=== PATIENT | female | born 2000 | race Caucasian/White ===

== ENCOUNTER → 2022-03-01 | Outpatient (CLI) | payer OTHER ==
[2022-03-01 14:25] LABS: HEMATOCRIT 40.9 % (36.0-47.0); HEMOGLOBIN 14.2 g/dl (12.0-15.5); MEAN CORPUSCULAR HEMOGLOBIN 29.8 pg (27.0-33.0); MEAN CORPUSCULAR HGB CONC 34.7 g/dl (32.0-36.5); MEAN CORPUSCULAR VOLUME 85.9 fl (80.0-96.0); PLATELET COUNT, AUTOMATED 244 10^3/uL (150-450); RED BLOOD COUNT 4.76 10^6/uL (4.00-5.40); WHITE BLOOD COUNT 8.5 10^3/uL (4.0-10.0)
[2022-03-01 15:44] LABS: GC DNA AMPLIFICATION NEGATIVE (NEGATIVE)
[2022-03-01 16:00] LABS: HEPATITIS C VIRUS ABY INDEX < 0.0 INDEX (<0.8); HIV 1&2 SCREEN CENTAUR NEGATIVE (NEGATIVE)
== END ==
LOC: M PLALAB 10:24
PROVIDERS: ATTEND Obstetrics & Gynecology
DX: Z34.81 Encounter for supervision of other normal pregnancy, first trimester (principal); Z3A.00 Weeks of gestation of pregnancy not specified

== ENCOUNTER → 2022-04-24 | Outpatient (CLI) | payer SELFPAY | LOC: M WHC 07:10 | PROVIDERS: ATTEND Advanced Practice Midwife | DX: Z34.82 Encounter for supervision of other normal pregnancy, second trimester (principal); Z3A.20 20 weeks gestation of pregnancy ==

== ENCOUNTER → 2022-06-02 | Outpatient (CLI) | payer OTHER ==
[2022-06-02 17:30] LABS: HEMATOCRIT 38.3 % (36.0-47.0); HEMOGLOBIN 12.7 g/dl (12.0-15.5); MEAN CORPUSCULAR HEMOGLOBIN 28.7 pg (27.0-33.0); MEAN CORPUSCULAR HGB CONC 33.2 g/dl (32.0-36.5); MEAN CORPUSCULAR VOLUME 86.7 fl (80.0-96.0); PLATELET COUNT, AUTOMATED 296 10^3/uL (150-450); RED BLOOD COUNT 4.42 10^6/uL (4.00-5.40); WHITE BLOOD COUNT 11.7 10^3/uL (4.0-10.0)
== END ==
LOC: M PLALAB 14:29
PROVIDERS: ATTEND Obstetrics & Gynecology
DX: Z34.02 Encounter for supervision of normal first pregnancy, second trimester (principal); Z3A.00 Weeks of gestation of pregnancy not specified

== ENCOUNTER → 2022-07-03 | Outpatient (CLI) | payer OTHER, SELFPAY | LOC: M WHC 13:32 | PROVIDERS: ATTEND Obstetrics & Gynecology | DX: Z34.02 Encounter for supervision of normal first pregnancy, second trimester (principal); Z3A.29 29 weeks gestation of pregnancy ==

== ENCOUNTER → 2022-07-26 | Outpatient (CLI) | payer OTHER | LOC: M LAB 07:05 | PROVIDERS: ATTEND Obstetrics & Gynecology | DX: R73.09 Other abnormal glucose (principal) ==

== ENCOUNTER → 2022-08-11 | Outpatient (REF) | payer OTHER | LOC: M SFHCWAGY 16:47 | PROVIDERS: ATTEND Obstetrics & Gynecology | DX: Z34.03 Encounter for supervision of normal first pregnancy, third trimester (principal) | CPT/HCPCS: 87081; 87186; G0463 ==

== ENCOUNTER 2022-09-10 02:01 | Inpatient (IN) | payer OTHER ==
[2022-09-10] VITALS (30 sets, daily range): BP systolic 93–146; BP diastolic 50–113
[~2022-09-10] VITALS: Ht 152.4 cm; Wt 84.1 kg
[2022-09-10] MEDS ORDERED: PENICILLIN G POTASSIUM 5 MU IV 5 MU in D5W MINI-BAG PLUS 100 ML IV STA (02:48)
[2022-09-10] MEDS ORDERED: LIDOCAINE 1% MDV 20ML VIAL INFIL PRN (02:50)
[2022-09-10] MEDS ORDERED: OXYTOCIN DRIP 30 UNITS in IV 1 EA IV PRN (02:50)
[2022-09-10] MEDS ORDERED: UNRESOLVED CLARIFICATION ENTRY XX STA (02:53)
[2022-09-10 03:32] LABS: HEMATOCRIT 33.6 % (36.0-47.0); HEMOGLOBIN 10.9 g/dl (12.0-15.5); MEAN CORPUSCULAR HEMOGLOBIN 25.3 pg (27.0-33.0); MEAN CORPUSCULAR HGB CONC 32.4 g/dl (32.0-36.5); MEAN CORPUSCULAR VOLUME 78.1 fl (80.0-96.0); PLATELET COUNT, AUTOMATED 247 10^3/uL (150-450); WHITE BLOOD COUNT 11.2 10^3/uL (4.0-10.0)
[2022-09-10] MEDS ORDERED: ePHEDrine SULFATE 25 MG/5 ML(5MG/ML) SYRINGE IVP PRN (05:05)
[2022-09-10] MEDS ORDERED: NALOXONE INJ 0.4MG/1ML VIAL IV PRN (05:05)
[2022-09-10] MEDS ORDERED: EPIDURAL/PCA KEYS XX PRN (05:05)
[2022-09-10] MEDS ORDERED: LR 500 ML IV PRN (05:05)
[2022-09-10] MEDS ORDERED: diphenhydrAMINE 50MG/ML VIAL IV PRN (05:05)
[2022-09-10] MEDS: FENTANYL/ROPIVACAINE/NACL BAG 100 ML EPIDURAL SCH ×2 (05:50→17:27)
[2022-09-10] MEDS ORDERED: OXYTOCIN DRIP 30 UNITS in IV 1 EA IV SCH (07:15)
[2022-09-10] MEDS: PEN G POT 3,000,000 UNIT/50 ML 3,000,000 UNIT in IV 1 EA IV SCH ×4 (07:46→21:03)
[2022-09-10] MEDS ORDERED: PRENTAB9 PO (08:25)
[2022-09-10] MEDS ORDERED: HOME MED LIST COMPLETE! XX SCH (08:25)
[2022-09-10] MEDS ORDERED: ONDA-83 PO (08:25)
[2022-09-10] MEDS: LR 1,000 ML IV SCH ×2 (08:27→17:27)
[2022-09-10] MEDS: ONDANSETRON 4MG 2ML VIAL IV PRN ×2 (14:50→21:03)
[2022-09-10] MEDS ORDERED: ACETAMINOPHEN 500 MG TAB PO ONE (20:00)
[2022-09-10] MEDS ORDERED: CALCIUM CARBONATE 500 MG CHEW U/D PO PRN (21:00)
[2022-09-10 21:59] LABS: CORD GAS ABE A -12.1; CORD GAS HCO3 A 17.9 MEQ/L; CORD GAS O2 SAT A 21.9 %; CORD GAS PCO2 A 57.4 mmHg; CORD GAS PH A 7.111 UNITS; CORD GAS PO2 A 15.1 mmHg; CORD GAS SBC A 13.7 MEQ/L; CORD GAS TCO2 A 19.6 MEQ/L
[2022-09-10 22:00] LABS: CORD GAS ABE V -11.9; CORD GAS HCO3 V 14.8 MEQ/L; CORD GAS O2 SAT V 43.6 %; CORD GAS PCO2 V 36.2 mmHg; CORD GAS PH V 7.229 UNITS; CORD GAS PO2 V 20.8 mmHg; CORD GAS SBC V 14.3 MEQ/L; CORD GAS TCO2 V 15.9 MEQ/L
[2022-09-10] MEDS ORDERED: RHOGAM 300MCG (1500IU) INJ IM SCH (22:15)
[2022-09-10] MEDS ORDERED: ONDANSETRON 4MG 2ML VIAL IV PRN (22:15)
[2022-09-10] MEDS ORDERED: METHYLERGONOVINE MALEATE 0.2 MG TAB PO PRN (22:15)
[2022-09-10] MEDS ORDERED: ACETAMINOPHEN TAB 650MG DOSE (2X325MG) PO PRN (22:15)
[2022-09-10] MEDS ORDERED: DIBUCAINE 1% OINTMENT 30GM TOP PRN (22:15)
[2022-09-10] MEDS ORDERED: IBUPROFEN 600MG TAB PO PRN (22:15)
[2022-09-10] MEDS ORDERED: DOCUSATE SODIUM 100MG CAPSULE PO PRN (22:15)
[2022-09-11] MEDS: IBUPROFEN 800 MG TAB PO PRN ×3 (00:05→21:27)
[2022-09-11 00:10] VITALS: BP 127/62
[2022-09-11 06:00] VITALS: BP 120/71
[2022-09-11] MEDS: PRENATAL VITAMINS CHEWABLE TABLET PO SCH (08:07)
[2022-09-11] MEDS: ACETAMINOPHEN 500 MG TAB PO PRN ×2 (08:08→19:55)
[2022-09-11 18:08] VITALS: BP 114/63
[2022-09-12] MEDS: ACETAMINOPHEN 500 MG TAB PO PRN ×2 (02:18→14:24)
[2022-09-12] MEDS: IBUPROFEN 800 MG TAB PO PRN (05:29)
[2022-09-12 06:00] VITALS: BP 103/56
[2022-09-12] MEDS: PRENATAL VITAMINS CHEWABLE TABLET PO SCH (08:43)
[2022-09-12] MEDS ORDERED: MEASLES,MUMPS,RUBELLA VACCINE INJ (MMR-II) SC.IMMUN ONE (09:00)
== END 2022-09-12 18:08 | disposition home or self-care (01) | DRG 807 ==
LOC: M LDO 02:01 → M LDI 02:47 → M OBS 23:54
PROVIDERS: ADMIT Specialist; ATTEND Specialist
PROC: 10E0XZZ Delivery of Products of Conception, External Approach (ICD-10-PCS; principal; 2022-09-10)
PROC: 0KQM0ZZ Repair Perineum Muscle, Open Approach (ICD-10-PCS; 2022-09-10)
DX: O99.284 Endocrine, nutritional and metabolic diseases complicating childbirth (principal); Z37.0 Single live birth; Z3A.40 40 weeks gestation of pregnancy; O70.1 Second degree perineal laceration during delivery

== ENCOUNTER → 2023-07-09 | Outpatient (REF) | payer OTHER ==
[~2023-07-09] MED LIST: ONDA-83 PO; PRENTAB9 PO
== END ==
LOC: M SFHCWAGY 17:13
PROVIDERS: ATTEND Nurse Practitioner Family
DX: Z12.4 Encounter for screening for malignant neoplasm of cervix (principal)

== ENCOUNTER 2023-11-09 08:40 | Day surgery (SDC) | payer OTHER ==
[~2023-11-09] VITALS: Ht 152.4 cm; Wt 72.6 kg
[2023-11-09] MEDS ORDERED: MIDAZOLAM INJ 2MG/2ML VIAL As Ordered ONE (09:04)
[2023-11-09] MEDS ORDERED: fentaNYL 100 MCG/2 ML INJECTION As Ordered ONE (09:05)
[2023-11-09] MEDS ORDERED: propofoL 200 MG/20 ML VIAL As Ordered ONE (09:05)
[2023-11-09] MEDS ORDERED: SUGAMMADEX SODIUM 500 MG/5 ML VIAL (BRIDION) As Ordered ONE (09:05)
[2023-11-09] MEDS ORDERED: LIDOCAINE 2% 100MG/5ML SDV (FOR ANES.) As Ordered ONE (09:05)
[2023-11-09] MEDS ORDERED: ONDANSETRON 4MG 2ML VIAL As Ordered ONE (09:05)
[2023-11-09] MEDS ORDERED: ROCURONIUM BROMIDE 50MG/5ML VIAL As Ordered ONE (09:05)
[2023-11-09] MEDS ORDERED: KETOROLAC 60MG 2ML VIAL As Ordered ONE (09:05)
[2023-11-09 09:23] LABS: MEAN CORPUSCULAR HEMOGLOBIN 28.2 pg (27.0-33.0); MEAN CORPUSCULAR HGB CONC 33.3 g/dl (32.0-36.5); MEAN CORPUSCULAR VOLUME 84.6 fl (80.0-96.0); PLATELET COUNT, AUTOMATED 305 10^3/uL (150-450); RED BLOOD COUNT 5.32 10^6/uL (4.00-5.40); WHITE BLOOD COUNT 6.7 10^3/uL (4.0-10.0)
[2023-11-09] MEDS ORDERED: LR 1,000 ML IV SCH ×2 (09:25→11:10)
[2023-11-09] MEDS ORDERED: ACETAMINOPHEN 1000MG 100ML IV BAG As Ordered ONE (10:05)
[2023-11-09] MEDS ORDERED: ESMOLOL INJ 100MG/10ML VIAL As Ordered ONE (10:48)
[2023-11-09] MEDS ORDERED: fentaNYL 100 MCG/2 ML INJECTION IV PRN (11:10)
[2023-11-09] MEDS: ONDANSETRON 4MG 2ML VIAL IV PRN (11:41)
[2023-11-09] MEDS: oxyCODONE 5MG TAB PO PRN (11:41)
[2023-11-09] MEDS: HYDROMORPHONE HCL 0.5 MG/ 0.5 ML SYRINGE IV PRN (11:53)
[2023-11-09 12:40] VITALS: BP 121/74; TEMP 97; O2SAT 98
== END 2023-11-09 13:10 | disposition home or self-care (01) ==
LOC: M SDC 08:40
PROVIDERS: ATTEND Obstetrics & Gynecology
DX: Z30.2 Encounter for sterilization (principal)
CPT/HCPCS: 36415; 58661; 81025; 85027; 86850; 86900; 86901; 88302; J0131; J0665; J1100; J1170; J1805; J1885; J2250; J2405; J3010